=== PATIENT | female | born 1990 | race Two or more races ===

== ENCOUNTER 2018-07-12 19:20 | Emergency (ER) | payer OTHER ==
[~2018-07-12] VITALS: Ht 157.5 cm; Wt 84.8 kg
[2018-07-12] MEDS ORDERED: PRENATAL + DHA1 EAC1 (19:28)
== END 2018-07-13 12:06 | disposition home or self-care (01) ==
LOC: ER 19:20
DX: O98.512 Other viral diseases complicating pregnancy, second trimester (principal); J11.1 Influenza due to unidentified influenza virus with other respiratory manifestations; B96.0 Mycoplasma pneumoniae [M. pneumoniae] as the cause of diseases classified elsewhere; Z34.02 Encounter for supervision of normal first pregnancy, second trimester

== ENCOUNTER 2018-11-15 11:54 | Inpatient (IN) | payer OTHER ==
[~2018-11-15] VITALS: Ht 157.5 cm; Wt 92.1 kg
[~2018-11-15 11:54] MED LIST: PRENATAL + DHA1 EAC1
[2018-11-16] MEDS ORDERED: DIALYVITE TABL1 EACH PO (14:27)
[2018-11-16] MEDS ORDERED: ASA81 MG PO (14:27)
[2018-11-16] MEDS ORDERED: IRON325 MG PO (14:28)
== END 2018-11-18 11:13 | disposition home or self-care (01) | DRG 807 ==
LOC: LDR 11-16 13:46 → SURG-SUITE 11-16 13:46 → SURH 11-21 11:45 → OB/GYN 11-24 11:50
PROVIDERS: ADMIT Specialist
PROC: 10E0XZZ Delivery of Products of Conception, External Approach (ICD-10-PCS; principal; 2018-11-16)
PROC: 0UQGXZZ Repair Vagina, External Approach (ICD-10-PCS; 2018-11-16)
PROC: 0UQMXZZ Repair Vulva, External Approach (ICD-10-PCS; 2018-11-16)
PROC: 10907ZC Drainage of Amniotic Fluid, Therapeutic from Products of Conception, Via Natural or Artificial Opening (ICD-10-PCS; 2018-11-16)
PROC: 4A1HXCZ Monitoring of Products of Conception, Cardiac Rate, External Approach (ICD-10-PCS; 2018-11-16)
DX: O71.4 Obstetric high vaginal laceration alone (principal); Z37.0 Single live birth; O71.82 Other specified trauma to perineum and vulva; Z3A.38 38 weeks gestation of pregnancy